=== PATIENT | female | born 1945 | race Caucasian/White ===

== ENCOUNTER 2024-02-12 08:11 | Outpatient (CLI) | payer MEDICARE | END 2024-02-12 08:12 | disposition home or self-care (01) | LOC: CSHSLEEP 08:11 | PROVIDERS: ATTEND Family Medicine | DX: G47.9 Sleep disorder, unspecified (principal); R35.1 Nocturia; R09.02 Hypoxemia; R53.83 Other fatigue; R06.83 Snoring; G47.33 Obstructive sleep apnea (adult) (pediatric) | CPT/HCPCS: 95810 ==

== ENCOUNTER 2024-02-27 08:40 | Outpatient (CLI) | payer MEDICARE | END 2024-02-27 08:41 | disposition home or self-care (01) | LOC: CSHSLEEP 08:40 | PROVIDERS: ATTEND Family Medicine | DX: G47.9 Sleep disorder, unspecified (principal); R35.1 Nocturia; R09.02 Hypoxemia; R53.83 Other fatigue; R06.83 Snoring; G47.33 Obstructive sleep apnea (adult) (pediatric) | CPT/HCPCS: 95811 ==

== ENCOUNTER 2025-01-31 11:53 | Outpatient (CLI) | payer MEDICARE, OTHER | END 2025-01-31 11:54 | disposition home or self-care (01) | LOC: CSHULT 11:53 | PROVIDERS: ATTEND Family Medicine | DX: M79.89 Other specified soft tissue disorders (principal); Z96.652 Presence of left artificial knee joint ==